=== PATIENT | female | born 1980 | race Caucasian/White ===

== ENCOUNTER 2024-09-26 13:30 | Outpatient (CLI) | payer OTHER, SELFPAY ==
--- NOTE | ~2024-09-26 | MR_ITS ---
MRI of the right knee Clinical history: Pain Technique: Coronal proton density and proton density-weighted images, sagittal proton-density and T2 fat-sat images, and axial proton-density fat-saturated images were acquired. Findings: Anterior and posterior cruciate ligaments are intact. Medial collateral ligament and the la teral collateral ligament complex are intact. Popliteus tendon is intact. Medial and lateral menisci are intact, without evidence of tear. Articular cartilage is relatively well preserved throughout the knee. Probable mild chondromalacia at the inferior femoral trochlea. Bone marrow signals are unremarkable. Extensor mechanism is intact. No significant joint effusion. Small Williamson's cyst. Impression: Mild chondromalacia the inferior femoral trochlea. Small Williamson's cyst. Reviewed, dictated and finalized at [facility]. MODELING SPECIALIST Impression: Mild chondromalacia the inferior femoral trochlea. Small Williamson's cyst.
== END 2024-09-26 13:31 | disposition home or self-care (01) ==
LOC: GOSHIMG 13:31
PROVIDERS: PCP Orthopaedic Surgery; Visit Provider Orthopaedic Surgery
DX: M94.261 Chondromalacia, right knee (principal); M71.21 Synovial cyst of popliteal space [Baker], right knee; M25.561 Pain in right knee; G89.29 Other chronic pain
CPT/HCPCS: 73721